=== PATIENT | female | born 1940 | race Caucasian/White ===

== ENCOUNTER 2023-04-24 15:43 | Inpatient (IN) | payer MEDICARE, OTHER ==
[2023-04-24 17:01] VITALS: BMI 22.3
[2023-04-24] MEDS ORDERED: Senokot S 8.6-50 MG TAB PO PRN (17:09)
[2023-04-24] MEDS ORDERED: Acetaminophen 325 MG TAB PO PRN (17:09)
[2023-04-24] MEDS ORDERED: Ondansetron PF 4 MG/2 ML Vial IVP PRN (17:09)
[2023-04-24] MEDS ORDERED: Levofloxacin 750 mg/D5W 500 MG in Premix Bag 1 BAG IVPB SCH (17:15)
[2023-04-24] MEDS: Azithromycin 500 MG in Sodium Chloride 0.9% 250 ML 250 ML IVPB SCH (18:11)
[2023-04-25 07:02] LABS: #Eosinphils 0.1 thou/uL (0.0-0.7); #Monocytes 1.1 thou/uL (0.11-0.59); %Basophils 0.2 % (0.0-1.0); %Eosinophils 1.1 % (0.0-10.0); %Lymphocytes 7.2 % (21.0-51.0); %Monocytes 9.1 % (0.0-10.0); Hemoglobin 11.9 g/dL (12.0-16.0); Mean Corpuscular HGB CONC 32.9 g/dL (32.0-36.0); Mean Corpuscular Hemoglobin 27.8 pg (27.0-31.0); Mean Corpuscular Volume 84.6 fl (78.0-98.0); Mean Platelet Volume 11.1 fL (7.4-10.4); Platelet Count 239 10x3/uL (130-400); RBC Distribution Width 12.9 % (11.5-14.5); Red Blood Cell (RBC) Count 4.28 mill/uL (4.20-5.40); White Blood Cell (WBC) Count 12.3 10x3/uL (4.8-10.8)
[2023-04-25 07:40] LABS: Anion Gap 13 mmol/L (10-20); BUN (Urea Nitrogen) 7 mg/dL (9.8-20.1); Calc. Creatinine Clearance 62 mL/min (70-130); Calcium 9.6 mg/dL (7.8-10.44); Carbon Dioxide 31 mmol/L (23-31); Chloride 99 mmol/L (98-107); Estimated GFR 88; Glucose 76 mg/dL (83-110); Potassium 3.5 mmol/L (3.5-5.1); Sodium 139 mmol/L (136-145)
[2023-04-25] MEDS: Guaifenesin DM 100-10/5 ML UDCUP PO PRN ×3 (09:00→17:04)
[2023-04-25] MEDS ORDERED: Ipratropium/Albuterol 3 ML NEB EZPAP PRN (10:07)
[2023-04-25] MEDS: cefTRIAXone\\ROCEPHIN 1 GM in Sodium Chloride 0.9% 100 ML IVPB SCH (11:45)
[2023-04-25 14:47] LABS: Legionella Urinary Ag Negative (Negative)
[2023-04-25] MEDS: Azithromycin 500 MG in Sodium Chloride 0.9% 250 ML 250 ML IVPB SCH (17:03)
[2023-04-25] MEDS: Atorvastatin Calcium 10 MG TAB PO SCH (21:06)
[2023-04-26] MEDS: Guaifenesin DM 100-10/5 ML UDCUP PO PRN ×3 (06:22→14:59)
[2023-04-26 07:04] LABS: #Eosinphils 0.2 thou/uL (0.0-0.7); #Monocytes 0.7 thou/uL (0.11-0.59); #Neutrophils 5.6 thou/uL (1.40-6.50); %Basophils 0.3 % (0.0-1.0); %Eosinophils 2.6 % (0.0-10.0); %Lymphocytes 11.4 % (21.0-51.0); %Monocytes 9.9 % (0.0-10.0); %Neutrophils 75.5 % (42.0-75.0); Hemoglobin 10.3 g/dL (12.0-16.0); Mean Corpuscular Hemoglobin 27.4 pg (27.0-31.0); Mean Corpuscular Volume 85.6 fl (78.0-98.0); Mean Platelet Volume 10.8 fL (7.4-10.4); Platelet Count 219 10x3/uL (130-400); RBC Distribution Width 12.6 % (11.5-14.5); Red Blood Cell (RBC) Count 3.76 mill/uL (4.20-5.40); White Blood Cell (WBC) Count 7.4 10x3/uL (4.8-10.8)
[2023-04-26 07:32] LABS: Anion Gap 8 mmol/L (10-20); BUN (Urea Nitrogen) 8 mg/dL (9.8-20.1); Bilirubin, Total 0.6 mg/dL (0.2-1.2); Calc. Creatinine Clearance 59 mL/min (70-130); Calcium 9.1 mg/dL (7.8-10.44); Carbon Dioxide 34 mmol/L (23-31); Chloride 99 mmol/L (98-107); Estimated GFR 87; Globulin 2.8 g/dL (2.4-3.5); Glucose 130 mg/dL (83-110); Potassium 3.2 mmol/L (3.5-5.1); Protein, Total 5.8 g/dL (5.8-8.1); Sodium 138 mmol/L (136-145)
[2023-04-26 07:33] LABS: ALT (SGPT) 18 U/L (8-55); AST (SGOT) 18 U/L (5-34); Alkaline Phosphatase 73 U/L (40-110)
[2023-04-26] MEDS: Amlodipine 10 MG TAB PO SCH (08:36)
[2023-04-26] MEDS: Anastrozole 1 MG TAB PO SCH (08:36)
[2023-04-26] MEDS: Losartan 25 MG TAB PO SCH (08:37)
[2023-04-26] MEDS: PARoxetine 20 MG TAB PO SCH (08:37)
[2023-04-26] MEDS: Hydrochlorothiazide 25 MG TAB PO SCH (08:37)
[2023-04-26] MEDS: cefTRIAXone\\ROCEPHIN 1 GM in Sodium Chloride 0.9% 100 ML IVPB SCH (11:15)
[2023-04-26] MEDS: Azithromycin 500 MG in Sodium Chloride 0.9% 250 ML 250 ML IVPB SCH (17:12)
[2023-04-26] MEDS ORDERED: predniSONE 20 MG TAB PO SCH (19:15)
[2023-04-26] MEDS ORDERED: Potassium Chloride 20 MEQ TAB PO SCH (19:15)
[2023-04-26] MEDS ORDERED: Mometasone 200 MCG/Formoterol 5 MCG 120 PUFF INHALER INH SCH (20:00)
[2023-04-26] MEDS: Ipratropium/Albuterol 3 ML NEB EZPAP SCH (20:43)
[2023-04-26] MEDS: Atorvastatin Calcium 10 MG TAB PO SCH (22:20)
[2023-04-27] MEDS: Ipratropium/Albuterol 3 ML NEB EZPAP SCH ×6 (02:11→23:07)
[2023-04-27 07:11] LABS: #Monocytes 0.1 thou/uL (0.11-0.59); #Neutrophils 5.3 thou/uL (1.40-6.50); %Basophils 0.2 % (0.0-1.0); %Lymphocytes 6.3 % (21.0-51.0); %Monocytes 1.6 % (0.0-10.0); %Neutrophils 91.6 % (42.0-75.0); Hemoglobin 11.4 g/dL (12.0-16.0); Mean Corpuscular Hemoglobin 27.3 pg (27.0-31.0); Mean Corpuscular Volume 85.2 fl (78.0-98.0); Platelet Count 264 10x3/uL (130-400); RBC Distribution Width 12.4 % (11.5-14.5); Red Blood Cell (RBC) Count 4.18 mill/uL (4.20-5.40); White Blood Cell (WBC) Count 5.8 10x3/uL (4.8-10.8)
[2023-04-27 07:35] LABS: Anion Gap 11 mmol/L (10-20); BUN (Urea Nitrogen) 8 mg/dL (9.8-20.1); Calc. Creatinine Clearance 59 mL/min (70-130); Calcium 9.7 mg/dL (7.8-10.44); Carbon Dioxide 35 mmol/L (23-31); Chloride 97 mmol/L (98-107); Estimated GFR 87; Glucose 140 mg/dL (83-110); Potassium 4.4 mmol/L (3.5-5.1); Sodium 139 mmol/L (136-145)
[2023-04-27] MEDS: Mometasone 200 MCG/Formoterol 5 MCG 120 PUFF INHALER INH SCH ×2 (07:55→23:08)
[2023-04-27] MEDS ORDERED: Potassium Chloride 20 MEQ TAB PO SCH (08:00)
[2023-04-27] MEDS: Guaifenesin DM 100-10/5 ML UDCUP PO PRN ×3 (08:43→23:02)
[2023-04-27] MEDS: Anastrozole 1 MG TAB PO SCH (08:45)
[2023-04-27] MEDS: Losartan 25 MG TAB PO SCH (08:45)
[2023-04-27] MEDS: predniSONE 20 MG TAB PO SCH (08:45)
[2023-04-27] MEDS: PARoxetine 20 MG TAB PO SCH (08:45)
[2023-04-27] MEDS: Hydrochlorothiazide 25 MG TAB PO SCH (08:45)
[2023-04-27] MEDS: Amlodipine 10 MG TAB PO SCH (08:45)
[2023-04-27] MEDS: cefTRIAXone\\ROCEPHIN 1 GM in Sodium Chloride 0.9% 100 ML IVPB SCH (11:46)
[2023-04-27] MEDS: Azithromycin 500 MG in Sodium Chloride 0.9% 250 ML 250 ML IVPB SCH (17:46)
[2023-04-27] MEDS: Atorvastatin Calcium 10 MG TAB PO SCH (20:17)
[2023-04-28] MEDS: Ipratropium/Albuterol 3 ML NEB EZPAP SCH ×2 (03:43→07:35)
[2023-04-28] MEDS: Mometasone 200 MCG/Formoterol 5 MCG 120 PUFF INHALER INH SCH (07:34)
[2023-04-28 07:52] VITALS: BP 165/69; TEMP 98.6
[2023-04-28] MEDS: Anastrozole 1 MG TAB PO SCH (09:47)
[2023-04-28] MEDS: predniSONE 20 MG TAB PO SCH (09:47)
[2023-04-28] MEDS: Losartan 25 MG TAB PO SCH (09:47)
[2023-04-28] MEDS: Hydrochlorothiazide 25 MG TAB PO SCH (09:47)
[2023-04-28] MEDS: PARoxetine 20 MG TAB PO SCH (09:47)
[2023-04-28] MEDS: Amlodipine 10 MG TAB PO SCH (09:48)
== END 2023-04-28 10:44 | disposition home or self-care (01) | DRG 193 ==
LOC: T4-A 16:42
PROVIDERS: ADMIT Internal Medicine; ATTEND Family Medicine
DX: J15.9 Unspecified bacterial pneumonia (principal); J96.01 Acute respiratory failure with hypoxia; J90 Pleural effusion, not elsewhere classified; Z66 Do not resuscitate; I10 Essential (primary) hypertension; E78.5 Hyperlipidemia, unspecified; E87.6 Hypokalemia; Z96.641 Presence of right artificial hip joint; Z96.653 Presence of artificial knee joint, bilateral; Z88.1 Allergy status to other antibiotic agents; Z90.2 Acquired absence of lung [part of]; Z79.02 Long term (current) use of antithrombotics/antiplatelets; Z79.01 Long term (current) use of anticoagulants; Z79.899 Other long term (current) drug therapy; Z79.84 Long term (current) use of oral hypoglycemic drugs; Z92.3 Personal history of irradiation; Z85.118 Personal history of other malignant neoplasm of bronchus and lung; Z98.890 Other specified postprocedural states; Z80.0 Family history of malignant neoplasm of digestive organs; Z85.3 Personal history of malignant neoplasm of breast
CPT/HCPCS: 36415; 74183; 80048; 80053; 85025; 87899; 94640; J0456; J0696; J1650; J3490; J7050; J7512; J7620

== ENCOUNTER 2023-08-24 08:20 | Outpatient (CLI) | payer MEDICARE | END 2023-08-24 08:21 | disposition home or self-care (01) | LOC: BICMAMMO 08:20 | PROVIDERS: ATTEND Family Medicine | DX: Z87.898 Personal history of other specified conditions (principal) | CPT/HCPCS: 77066; G0279 ==

== ENCOUNTER 2024-01-21 22:00 | Emergency (ER) | payer MEDICARE ==
[2024-01-21] MEDS ORDERED: Ipratropium/Albuterol 3 ML NEB ONE (22:38)
[2024-01-21 23:01] LABS: #Eosinphils 0.1 thou/uL (0.0-0.7); #Monocytes 0.6 thou/uL (0.11-0.59); #Neutrophils 3.6 thou/uL (1.40-6.50); %Basophils 0.4 % (0.0-1.0); %Eosinophils 1.3 % (0.0-10.0); %Lymphocytes 18.2 % (21.0-51.0); %Monocytes 12.1 % (0.0-10.0); %Neutrophils 67.6 % (42.0-75.0); Hematocrit 35.2 % (36.0-47.0); Hemoglobin 11.2 g/dL (12.0-16.0); Mean Corpuscular HGB CONC 31.8 g/dL (32.0-36.0); Mean Corpuscular Hemoglobin 25.9 pg (27.0-31.0); Mean Corpuscular Volume 81.5 fl (78.0-98.0); Mean Platelet Volume 11.1 fL (7.4-10.4); Platelet Count 218 10x3/uL (130-400); RBC Distribution Width 13.6 % (11.5-14.5); Red Blood Cell (RBC) Count 4.32 mill/uL (4.20-5.40); White Blood Cell (WBC) Count 5.3 10x3/uL (4.8-10.8)
[2024-01-21 23:27] LABS: ALT (SGPT) 16 U/L (8-55); AST (SGOT) 20 U/L (5-34); Albumin 3.6 g/dL (3.4-4.8); Alkaline Phosphatase 73 U/L (40-110); Anion Gap 15 mmol/L (10-20); BUN (Urea Nitrogen) 11 mg/dL (9.8-20.1); Bilirubin, Total 0.5 mg/dL (0.2-1.2); Calc. Creatinine Clearance 0 mL/min (70-130); Calcium 8.8 mg/dL (7.8-10.44); Carbon Dioxide 26 mmol/L (23-31); Chloride 97 mmol/L (98-107); Estimated GFR 75; Globulin 2.9 g/dL (2.4-3.5); Glucose 145 mg/dL (83-110); Potassium 3.1 mmol/L (3.5-5.1); Protein, Total 6.5 g/dL (5.8-8.1); Sodium 135 mmol/L (136-145)
[2024-01-21 23:31] LABS: Troponin I 0.023 ng/mL (< 0.028)
[2024-01-22 00:09] LABS: Influenza A by NAA Not Detected (NotDetected); Influenza B by NAA Not Detected (NotDetected); SARS-CoV-2 NAA Rapid Test Not Detected (NotDetected)
[2024-01-22] MEDS ORDERED: Dexamethasone 10 MG/ML VIAL ONE (00:19)
== END 2024-01-22 01:17 | disposition home or self-care (01) ==
LOC: ERS 22:00
DX: J44.1 Chronic obstructive pulmonary disease with (acute) exacerbation (principal); I10 Essential (primary) hypertension; Z55.6 Problems related to health literacy
CPT/HCPCS: 0240U; 71045; 80053; 83880; 84484; 85025; 93005; 94640; 36415; J1100; J7620

== ENCOUNTER 2024-06-05 09:27 | Outpatient (CLI) | payer MEDICARE | END 2024-06-05 09:28 | disposition home or self-care (01) | LOC: RAD 09:27 | PROVIDERS: ATTEND Internal Medicine Critical Care Medicine | DX: R06.00 Dyspnea, unspecified (principal) | CPT/HCPCS: 71046 ==

== ENCOUNTER 2024-08-27 08:44 | Outpatient (CLI) | payer MEDICARE | END 2024-08-27 08:45 | disposition home or self-care (01) | LOC: BICMAMMO 08:44 | PROVIDERS: ATTEND Radiology Radiation Oncology | DX: Z08 Encounter for follow-up examination after completed treatment for malignant neoplasm (principal); Z85.3 Personal history of malignant neoplasm of breast; Z98.890 Other specified postprocedural states | CPT/HCPCS: 77066; G0279 ==

== ENCOUNTER 2024-09-17 10:52 | Outpatient (CLI) | payer MEDICARE | END 2024-09-17 10:53 | disposition home or self-care (01) | LOC: SCSMRI 10:52 | PROVIDERS: ATTEND Internal Medicine | DX: R51.9 Headache, unspecified (principal); C50.911 Malignant neoplasm of unspecified site of right female breast; H53.8 Other visual disturbances; I67.89 Other cerebrovascular disease | CPT/HCPCS: 70553 ==

== ENCOUNTER 2024-12-03 10:19 | Outpatient (CLI) | payer MEDICARE ==
[2024-12-03] MEDS ORDERED: Barium Sulfate 96% 176 GM BOT (xray ONLY) ONE (10:28)
[2024-12-03] MEDS ORDERED: E-Z-HD 98% W/W 340GM BOT (x-ray ONLY) ONE (10:28)
== END 2024-12-03 10:20 | disposition home or self-care (01) ==
LOC: RAD 10:19
PROVIDERS: ATTEND Specialist
DX: K44.9 Diaphragmatic hernia without obstruction or gangrene (principal); K21.9 Gastro-esophageal reflux disease without esophagitis
CPT/HCPCS: 74246

== ENCOUNTER 2025-07-11 08:44 | Outpatient (CLI) | payer MEDICARE ==
[2025-07-11] MEDS ORDERED: Barium Sulfate 96% 176 GM BOT (xray ONLY) ONE (08:56)
[2025-07-11] MEDS ORDERED: E-Z-HD 98% W/W 340GM BOT (x-ray ONLY) ONE (08:56)
== END 2025-07-11 08:45 | disposition home or self-care (01) ==
LOC: RAD 08:44
PROVIDERS: ATTEND Specialist
DX: K21.9 Gastro-esophageal reflux disease without esophagitis (principal); K57.10 Diverticulosis of small intestine without perforation or abscess without bleeding; Z98.890 Other specified postprocedural states
CPT/HCPCS: 74246

== ENCOUNTER 2025-10-01 09:44 | Outpatient (CLI) | payer MEDICARE | END 2025-10-01 09:45 | disposition home or self-care (01) | LOC: BICMAMMO 09:44 | PROVIDERS: ATTEND Nurse Practitioner Family | DX: Z78.0 Asymptomatic menopausal state (principal); M81.0 Age-related osteoporosis without current pathological fracture | CPT/HCPCS: 77080 ==